=== PATIENT | male | born 1985 | race Caucasian/White ===

== ENCOUNTER → 2023-08-25 12:46 | Outpatient (CLI) | payer OTHER, SELFPAY ==
--- NOTE | 2023-08-25 | DI.MRI.S_ITS ---
PROCEDURE: MR LUMBAR SPINE WO CON INDICATIONS: SPINAL STENOSIS W/NEUROGENIC CLAUDICATION TECHNIQUE: Noncontrast sagittal T1 spin echo and T2 fast echo, sagittal STIR, and T2 fast spin echo through the lumbar spine. In cases with scoliosis, additional coronal T2 fast spin echo may be performed. COMPARISON: [facility], CR, XR LUMBAR SPINE WITH OBLIQUES PLUS FLEXION EXTENSION, 08/14/2023, 8:52. FINDINGS: Image quality: Excellent. Alignment and Curvature: There is normal bony alignment. Bone Marrow: Marrow is of normal overall signal. No acute vertebral body compression fractures. Spinal Cord: Conus medullaris terminates at the L1 level. Visualized cord demonstrates normal signal and size. Paraspinous Soft Tissues: No paravertebral masses. T12-L1: Normal appearance. L1-L2: Normal appearance. L2-L3: Normal appearance. L3-L4: Disc desiccation. Mild diffuse disc bulge. Facet arthropathy and thickening of ligamentum flavum. Epidural lipomatosis. Mild central canal stenosis. No neural foraminal stenosis. L4-L5: Disc desiccation height loss. Central disc extrusion extending inferiorly. Facet arthropathy. Moderate central canal stenosis. Narrowing of the lateral recesses with abutment of the descending L5 nerve roots bilaterally. Mild bilateral neural foraminal stenosis. L5-S1: Disc desiccation height loss. Small central disc protrusion. Facet arthropathy. No central canal stenosis. Moderate left and mild right neural foraminal stenosis. IMPRESSION: 1. Degenerative changes of the lower lumbar spine as described above. 2. At L4-5, there is a central disc extrusion resulting in moderate central canal stenosis and narrowing of the bilateral lateral recesses with abutment of the descending L5 nerve roots. Mild neural foraminal stenosis. 3. Moderate left and mild right neural foraminal stenosis at L5-S1. Dictated by: Alcon Cody M.D. on 08/25/2023 at 14:02 Approved by: Alcon Cody M.D. on 08/25/2023 at 14:05
== END ==
PROVIDERS: Referring Provider Physical Medicine & Rehabilitation Pain Medicine; Visit Provider Physical Medicine & Rehabilitation Pain Medicine
DX: M48.062 Spinal stenosis, lumbar region with neurogenic claudication (principal); M48.07 Spinal stenosis, lumbosacral region; M47.816 Spondylosis without myelopathy or radiculopathy, lumbar region; M47.817 Spondylosis without myelopathy or radiculopathy, lumbosacral region; M51.26 Other intervertebral disc displacement, lumbar region
CPT/HCPCS: 72148